=== PATIENT | female | born 1975 | race Caucasian/White ===

== ENCOUNTER 2024-12-28 17:47 | Inpatient (IN) | payer BC, SELFPAY ==
[2024-12-28 17:48] VITALS: BMI 25.1
[2024-12-28 18:16] VITALS: BP 119/77; PULSE 103; RESP 19; TEMP 36.9; O2SAT 99
--- NOTE | 2024-12-28 18:44 | XR_ITS ---
Examination: CT abdomen with intravenous contrast CT pelvis with intravenous contrast 2-D coronal reconstructions 2-D sagittal reconstructions Date and time of exam: December 28, 20242009 hours INDICATIONS: Right perirectal swelling and tenderness beginning 2 days ago. CTDI: vol (mGy) 22.66 DLP: (mGycm) 928 Technique: Multiple axial sections of the abdomen and pelvis have been obtained. 64 slice high-resolution scanner used. 3 mm axial sections have been obtained, post intravenous injection of 60 cc [id number] 2-D sagittal, coronal reconstructions obtained. Low dose protocols were performed. One or more of the following dose reduction were used; automated exposure control, adjustment of the mA and/or KV according to patient size, use of iterative reconstruction technique. Findings: No focal liver or splenic lesions No gallstones No pancreatic or adrenal mass No renal or ureteral calculi, no hydronephrosis Aorta normal size No bowel obstruction Normal appendix No pelvic mass Rectal wall mild thickening Right perianal abscess, 41 x 32 x 55 mm IMPRESSION: 41 x 32 x 55 mm right perianal abscess
--- NOTE | 2024-12-28 18:48 | EDNOTE_ITS ---
ED Skin Abcess FB-RME/HPI General Chief complaint: Skin/Abscess/Foreign Body Stated complaint: RIGHT BUTTOCK ABSCESS X3DAYS Time Seen by Provider: 12/28/24 18:23 Arrival date/time: 12/28/24 17:47 RME / HPI RME / HPI narrative: 49-year-old female patient with no past medical history, came in for evaluation regarding right perirectal swelling and redness and tenderness, has been ongoing for the last 3 days, getting worse today severity moderate. Patient was seen by PCP, Dr Barclay and was given penicillin IM. Patient denies any fever denies any other complaints but complain of pain worse on ambulation. Denies any abdominal pain denies any chills denies any other complaints. Related Data Allergies Allergy/AdvReac Type Severity Reaction Status Date / Time No Known Allergies Allergy Verified 12/28/24 17:50 Review of Systems Review of Systems Narrative Review of Systems: Review of system reviewed and within normal limits except mentioned in HPI ED Exam Narrative Physical exam: VITAL SIGNS: Reviewed. GENERAL APPEARANCE: Alert and interactive, follows commands, no acute distress, HEAD AND FACE: Non-traumatic. ENT: PERRL, pink conjunctivitis, eyelid no trauma, Mucous membrane moist. NECK: Supple, nontender, no nuchal rigidity. CHEST: No tenderness, no crepitus, no paradoxical movement, no retractions. LUNGS: Clear, well ventilated, symmetric, no rales, no wheezing, no ronchi, no stridor, good breath sounds bilaterally. HEART: Regular rate, regular rhythm, no murmur, no gallops. ABDOMEN: Soft, positive bowel sounds, nondistended, no guarding, nontender, no rebound, no masses, RECTAL: 5 x 5 cm swelling redness, tenderness, right perirectal area with GENITAL: Deferred. NEUROLOGICAL: Gross motor function intact sensory function intact, Appropriate for age. MUSCULOSKELETAL: low back nontender, full range of motion. EXTREMITIES: Nontender, full range of motion. SKIN: Color pink, dry, no rash, no lacerations, no abrasions, no contusions. LYMPHATICS: Deferred. Course Quality Measures none Orders Category Date Time Status COVID-19 Screening Questionnaire NOW Care 12/28/24 20:[address] Screening NOW Care 12/28/24 18:45 Completed Decision to Admit X1 Care 12/28/24 20:31 Completed Consult to General Surgery Stat Cons 12/28/24 20:[address] abdomen pelvis w con Stat Exams 12/28/24 18:44 Completed Blood Culture (Lab) Stat Lab 12/28/24 19:01 Received CBC [CBC] Stat Lab 12/28/24 19:01 Completed CMP [Comprehensive Metabolic Panel] Stat Lab 12/28/24 19:01 Completed Lactate (Lactic Acid) Stat Lab 12/28/24 19:01 Completed Procalcitonin Stat Lab 12/28/24 19:01 Completed UA, C/S IF [Urinalysis, C/S if Indicated] Stat Lab 12/28/24 18:46 Ordered Morphine* Inj Med 12/28/24 18:46 Discontinued 4 mg IVP X1 ONE Ondansetron Odt [Zofran Odt] Med 12/28/24 18:47 Discontinued 4 mg PO X1 ONE Piper/Tazo 3.375 gm Premix [Zosyn] Med 12/28/24 18:45 Discontinued 3.375 gm in 50 ml IV X1 Ringers Lactated 1000 ml [Lactated Ringers] 1,000 ml Med 12/28/24 18:45 Discon tinued IV 999 mls/hr TET,DIP/PERT AC (Adult)-Tdap [Boostrix Adult (Tdap) Med 12/28/24 18:47 Discontinued Vacc] 0.5 ml IMI .ONCE ONE Vital Signs Vital signs: Vital Signs Temperature 98.4 F 12/28/24 18:16 Pulse Rate 103 H 12/28/24 18:16 Respiratory Rate 19 12/28/24 18:16 Blood Pressure 119/77 12/28/24 18:16 Pulse Oximetry (%) 99 12/28/24 18:16 Oxygen Delivery Method Room Air 12/28/24 18:16 Skin / Abscess / Foreign Body MDM Narrative MDM Narrative:: 49-year-old female patient with no past medical history, came in for evaluation regarding right perirectal swelling and redness and tenderness, has been ongoing for the last 3 days, getting worse today severity moderate. Patient was seen by PCP, Dr Barclay and was given penicillin IM. Patient denies any fever denies any other complaints but complain of pain worse on ambulation. Denies any abdominal pain denies any chills denies any other complaints. Patient's laboratory workup all came back unremarkable except potassium 3.3. CT scan of the abdomen and pelvis showed No focal liver or splenic lesions No gallstones No pancreatic or adrenal mass No renal or ureteral calculi, no hydronephrosis Aorta normal size No bowel obstruction Normal appendix No pelvic mass Rectal wall mild thickening Right perianal abscess, 41 x 32 x 55 mm IMPRESSION: 41 x 32 x 55 mm right perianal abscess Patient received IV fluids, IV Zosyn, morphine, Toradol, and Boostrix. Spoke with Dr. Barclay, who admitted the patient, and told me to put consult for Dr Fortune because she already talked to Dr. Fortune, and Dr. Wiseman will do surgery tomorrow. I did not call Dr. Fortune because Dr. Renee already discussed the case with him. Patient data External records reviewed:: None Clinical information provided by:: patient Social determinants that could affect healthcare access:: none Patient has the following chronic illnesses:: None How is presenting disease/condition affected by chronic disease/condition?: no chronic disease Evaluation data The following diagnostics were reviewed and interpreted by me:: lab results and radiology exam(s) Lab and/or radiology exams considered but not ordered:: None Interpretation Summary: See results MDM Medications / Prescriptions Medications or Prescriptions considered but not ordered:: None Medication administrations:: Medication Administration History Acetaminophen (Acetaminophen 325 Mg Tablet) 650 mg PO Q6HR PRN PRN Reason: PAIN OR FEVER > 101 Stop: 01/27/25 20:51 Last Admin: 12/28/24 21:13 Dose: 650 mg Documented By: DT Piperacillin/Tazobactam/Dextrose (Zosyn) 3.375 g in 50 mls @ 100 mls/hr IV Q6HR MARIVEL; Protocol Stop: 01/04/25 20:54 Last Admin: 12/28/24 21:15 Dose: Not Given Documented By: GB Non-Admin Reason: Wrong Time Discontinued Medications Diphtheria/Tetanus/Acell Pertussis (Diphth,Pertuss(Acell),Tet Vac 0.5 Ml Syr- Adult) 0.5 ml IMi .ONCE ONE Stop: 12/28/24 18:48 Last Admin: 12/28/24 21:17 Dose: 0.5 ml Documented By: DT Lactated Ringer's (Lactated Ringers) 1,000 mls @ 999 mls/hr IV .Q1H1M ONE Stop: 12/28/24 19:45 Last Infusion: 12/28/24 22:41 Dose: Infused Documented By: Admin: 12/28/24 21:13 Dose: 999 mls/hr Documented By: DT Piperacillin/Tazobactam/Dextrose (Zosyn) 3.375 gm in 50 mls @ 100 mls/hr IV X1 ONE; Protocol Stop: 12/28/24 19:14 Last Infusion: 12/28/24 21:40 Dose: Infused Documented By: Admin: 12/28/24 21:10 Dose: 100 mls/hr Documented By: DT Ketorolac Tromethamine (Ketorolac Inj 30 Mg/Ml Vial) 30 mg IVP X1 ONE Stop: 12/28/24 21:43 Last Admin: 12/28/24 21:57 Dose: 30 mg Documented By: DT Morphine Sulfate (Morphine Sulf Inj 4 Mg/Ml Vial) 4 mg IVP X1 ONE Stop: 12/28/24 18:47 Last Admin: 12/28/24 21:14 Dose: Not Given Documented By: DT Non-Admin Reason: Patient Refused Ondansetron HCl (Ondansetron Odt 4 Mg Tabrap) 4 mg PO X1 ONE; Protocol Stop: 12/28/24 18:48 Last Admin: 12/28/24 21:09 Dose: 4 mg Documented By: DT See MDM Consultations Consultation(s) initiated? (list below): Yes Consultation #1 (Physician, Specialty, Details): Dr Fortune consult was done in the computer. I did not talk to Dr Fortune since Dr Barclay already talk with him Diagnosis Skin/Abscess Differential Diagnosis: abscess of skin or subcutaneous tissue and cellulitis Most likely diagnosis given after review of the tests above:: Perianal abscess Admission Indicated Admission indicated?: indicated Admission Request Was there a request for admission?: Yes Admission Attestation Admission request attestation: Patient admitted by her PCP Disposition Plan Disposition Plan: Admit Discharge Plan Plan Patient Disposition: Admit Acute Care w/in Hospital Problem List Clinical Impression: Abscess, perianal
[2024-12-28 19:10] LABS: Lactate (Lactic Acid) 1.0 mMol/L (0.4-2.0)
[2024-12-28 19:11] LABS: Basophils # (Auto) 0.0 Thou/mm3 (0.0-0.2); Basophils % (Auto) 0 % (0-2.5); Eosinophils # (Auto) 0.0 Thou/mm3 (0.0-0.5); Eosinophils % (Auto) 0 % (0-10); Hematocrit 31.9 % (36.0-46.0); Hemoglobin 10.5 g/dL (12.0-16.0); Immature Granulocytes Auto 0.03 Thou/mm3 (0.00-0.00); Lymphocytes # (Auto) 0.7 Thou/mm3 (1.0-4.8); Lymphocytes % (Auto) 7 % (10-50); Mean Corpuscular HGB Conc 32.9 g/dl (31.0-37.0); Mean Corpuscular Hemoglobin 26.9 pg (25.0-35.0); Mean Corpuscular Volume 82 fL (80-100); Monocytes # (Auto) 1.0 Thou/mm3 (0.0-0.8); Monocytes % (Auto) 9 % (0-12); Neutrophils # (Auto) 9.3 Thou/mm3 (1.8-7.7); Neutrophils % (Auto) 84 % (37-80); Nucleated Red Blood Cell # 0.00 Thou/mm3 (0.00-0.00); Nucleated Red Blood Cell % 0 /100 WBC (0); Platelet Count 256 Thou/mm3 (140-440); RDW Standard Deviation 38.9 fL (36.4-46.3); Red Blood Count 3.91 Miln/mm3 (4.00-5.20); White Blood Count 11.0 Thou/mm3 (3.6-11.0)
[2024-12-28 19:54] LABS: Alanine Aminotransferase < 7 U/L (10-49); Albumin, Serum 4.1 gm/dL (3.5-5.0); Albumin/Globulin Ratio 1.5 (1.2-2.2); Alkaline Phosphatase 73 U/L (46-116); Anion Gap 14 (7-16); Aspartate Amino Transferase 11 U/L (0-34); BUN/Creatinine Ratio 13 Ratio (12-20); Bilirubin,Total 0.6 mg/dL (0.3-1.2); Blood Urea Nitrogen 10 mg/dL (9-23); Calcium 8.9 mg/dL (8.3-10.6); Calcium (Corrected) 8.9 mg/dL (8.5-10.1); Carbon Dioxide 24.0 mMol/L (20.0-31.0); Chloride 102 mMol/L (98-107); Creatinine (Component) 0.8 mg/dL (0.6-1.3); Estimated Creatinine Clearance 90.0 mL/min (>60); Globulin 2.8 gm/dL (2.3-3.5); Glucose 106 mg/dL (74-106); Osmolality,Calculated 278 (275-295); Potassium 3.3 mMol/L (3.4-5.1); Procalcitonin 0.05 ng/ml (0.0-0.49); Sodium 140 mMol/L (136-145); Total Protein 6.9 gm/dL (5.7-8.2); eGFR > 60 See Note
[2024-12-28] MEDS: ONDANSETRON ODT 4 MG TABRAP PO (21:09)
[2024-12-28] MEDS: PIPER/TAZO 3.375 GM PREMIX 3.375 GM/50 ML BAG IV (21:10)
[2024-12-28] MEDS: RINGERS LACTATED 1000 ML 1,000 ML 999 ML IV (21:13)
[2024-12-28] MEDS: ACETAMINOPHEN 325 MG TABLET 650 MG PO (21:13)
[2024-12-28] MEDS: DIPHTH,PERTUSS(ACELL),TET VAC 0.5 ML SYR- ADULT IMi (21:17)
[2024-12-28 21:29] VITALS: BP 104/72; PULSE 81; RESP 17; O2SAT 100
[2024-12-28] MEDS: KETOROLAC INJ 30 MG/ML VIAL IVP (21:57)
--- NOTE | 2024-12-28 22:58 | PC.NURSE ---
Pt arrivede to room 371 via rney transferred self to bed, oriented to room and call light placed within reach.
[2024-12-28 23:01] VITALS: BMI 26.3
[2024-12-29] VITALS (14 sets, daily range): BP systolic 97–115; BP diastolic 60–78; PULSE 68–84; RESP 12–97; TEMP 36.3–37.3; O2SAT 92–99
--- NOTE | 2024-12-29 00:05 | PC.NURSE ---
Contacted Dr. Barclay regarding pain medication, orders obtained, will inform pt.
[2024-12-29] MEDS: KETOROLAC INJ 30 MG/ML VIAL IVP ×2 (02:17→09:12)
[2024-12-29 04:54] LABS: Collection Type, Urine Clean Catch
[2024-12-29 04:59] LABS: Bilirubin,Urine Negative (Negative); Blood,Urine 3+ (Negative); Clarity,Urine Clear (Clear/Hazy); Color,Urine Yellow (Lt Yel-Yel); Glucose, Urine Negative (Negative); Ketones,Urine 3+ (Negative); Leukocyte Esterase,Urine Positive (Negative); Nitrite,Urine Negative (Negative); PH,Urine 6.0 (5.0-7.0); Protein,Urine 1+ (Neg - Trace); RBC,Urine 14 /hpf (0-3); Squamous Epithelial Cell,Urine 6 /hpf (0-5); Urobilinogen,Urine Negative mg/dL (0.0-1.0); WBC,Urine 21 /hpf (0-5)
[2024-12-29 05:00] LABS: Culture Indicated,Urine Yes
[2024-12-29 05:01] LABS: Specific Gravity,Urine 1.010 (1.001-1.035)
[2024-12-29] MEDS: PIPER/TAZO 3.375 GM PREMIX 3.375 G/50 ML BAG IV ×3 (06:23→21:07)
[2024-12-29] MEDS: POTASSIUM CHL 10 mEq IVPB 10 MEQ/100 ML BAG 100 MEQ IV (06:23)
[2024-12-29 10:32] LABS: Anion Gap 12 (7-16); BUN/Creatinine Ratio 13 Ratio (12-20); Blood Urea Nitrogen 9 mg/dL (9-23); Calcium 8.5 mg/dL (8.3-10.6); Carbon Dioxide 24.0 mMol/L (20.0-31.0); Chloride 104 mMol/L (98-107); Creatinine (Component) 0.7 mg/dL (0.6-1.3); Estimated Creatinine Clearance 111.6 mL/min (>60); Glucose 91 mg/dL (74-106); Osmolality,Calculated 278 (275-295); Potassium 3.5 mMol/L (3.4-5.1); Sodium 140 mMol/L (136-145); eGFR > 60 See Note
--- NOTE | 2024-12-29 10:37 | PC.SS ---
Patient is alert/oriented. Patient resides at home with spouse. Admitted for right perirectal abscess. Patient is independent with ADL's. No DME. Patient is employed. Patient is pending surgery. PCP: . Pharmacy: [facility]. Discharge plan is to return home. No d/c needs. Alt medical decision maker: Logan Melgar, ,
[2024-12-29 10:52] LABS: HCG,Qualitative Serum Negative
[2024-12-29] MEDS: fentaNYL CIT INJ 50 mCg/ML AMP 2ML IVP (13:10)
--- NOTE | 2024-12-29 13:25 | SUR.PHASEI ---
1239: pt arrived to PACU via gurney with LMA present, breathing unlabored, VS stable, anesthesia and RN quality control tester at bedside 1245: LMA removed by Dr Corral, dressing to right buttock clean, dry, and intact, report from Js MCLEOD and Dr Corral 1300: pt tolerating ice chips without difficulty swallowing or n/v 1325: pt awake, alert, able to follow commands, breathing unlabored, dressing to right buttock clean, dry, and intact, VS stable, report called to Jossie MCLEOD, pt transferred to room at this time.
--- NOTE | 2024-12-29 13:47 | PD.SURCONS ---
HPI Consult details Consult date: 12/28/24 Reason for consultation narrative: Perirectal pain History of present illness: 49-year-old female without significant past medical history presented to the emergency department with worsening perirectal pain. Her symptoms started about a week ago and has been getting progressively worse. Over the past 2 days she has had significant pain with increased swelling. She denies history of trauma. Patient has not had history of blood per rectum, changes in bowel habits or significant weight loss. She has not had colonoscopy in the past. Review of Systems Constitutional Constitutional: Denies chills and Denies fever(s) Cardiovascular Cardiovascular: Denies chest pain Respiratory Respiratory: Denies cough Gastrointestinal Gastrointestinal: Denies abdominal pain, Denies hematochezia, Denies nausea and Denies vomiting Genitourinary Genitourinary: Denies difficulty voiding Hematologic/Lymphatic Hematologic/Lymphatic: Denies easy bleeding and Denies easy bruising Past Medical History Surgical History OTHER SURGICAL HX: No surgeries in the past Social History SMOKING STATUS: Never smoker SUBSTANCE USE: does not use ALCOHOL: Never Meds Home Medications and Allergies Home Medications ?Medication ?Instructions ?Recorded ?Confirmed ?Type No Known Home Medications 12/28/24 12/28/24 History Allergies Allergy/AdvReac Type Severity Reaction Status Date / Time No Known Allergies Allergy Verified 12/28/24 17:50 Exam Vital Signs Temp Pulse Resp BP Pulse Ox O2 Del Method 97.7 F 81 17 115/78 97 Room Air 12/29/24 13:24 12/29/24 13:24 12/29/24 13:24 12/29/24 13:24 12/29/24 13:24 12/29/24 08:00 Constitutional Constitutional: no acute distress Routine Abdominal Exam Abdominal: Present soft and normoactive bowel sounds; Absent tenderness or distended Routine Rectal Exam Comments: Significant tenderness and cellulitis on the right perirectal area with fluctuance Results Results: Laboratory Laboratory results: results reviewed Results: Imaging CT scan - abdomen: report reviewed and image reviewed CT scan - pelvis: report reviewed and image reviewed Assessment & Plan Problem List (1) Abscess, perianal: Status: Acute Plan Keep n.p.o. with IV fluids and IV antibiotics. Will plan for incision and drainage of perianal abscess. Risks include but not limited to infection, bleeding, chronic nonhealing wound, possible formation of anal fistula in the future, possible need for future operation discussed with the patient. Benefits alternatives explained to her, all her questions answered, she agreed and consented to proceed with the operation.
--- NOTE | 2024-12-29 13:51 | ESOP_ITS ---
Date of Procedure 01/24/25 Pre Op Diagnosis Right perianal abscess Post Op Diagnosis Right perianal abscess Procedure Incision and drainage of right perianal abscess Findings Significant cellulitis, fluctuance and large right perianal abscess Procedure Description Patient brought into the operating room in supine position. After administra tion of general endotracheal anesthesia, patient was placed in high lithotomy position. Her perineum was prepped and draped in standard surgical manner. She was noted to have a significant cellulitis with large area of fluctuance on the right perianal region approximately 2 to 3 cm from anal verge. After administration of local anesthesia an approximately 1 cm cross-shaped incision was made over the area of most fluctuance, copious amount of purulent drainage encountered, cultures were obtained. The abscess cavity was evacuated. The cavity was copiously and thoroughly washed and irrigated with Betadine mixed with peroxide and saline. It was further washed with warm saline. The cavity was then packed with wet-to-dry dressings. Patient tolerated procedure well. She was placed in supine position and extubated. She was breathing spontaneously and without difficulty and was transferred to postanesthesia care in stable condition. Instruments, needles and sponge counts were reported to be correct x 2. Anesthesia GETA and local Pathology / specimen Other (Cultures from the abscess cavity) Estimated Blood Loss 10 Condition Stable Disposition PACU Surgeon Ines Fortune MD Surgical Staff Operation Date: 12/29/24 11:45 <No data on this case meets the specified criteria>
[2024-12-29] MEDS: CLINDAMYCIN 900MG IVPB 900 MG in PRE-MIXED 1 BAG 50 MG IV ×2 (14:19→21:07)
[2024-12-29] MEDS: ZINC SULFATE 220 MG CAPSULE PO (14:19)
--- NOTE | 2024-12-29 15:44 | ESHP_ITS ---
Documentation for date of: 12/29/24 [facility] History of Present Illness Chief complaint: Right buttock pain and swelling for 3 days History of present illness: 49-year-old female with no significant past medical history presented with worsening right perirectal pain, redness, and swelling over the past 3 days. Pain is moderate, constant, and aggravated by ambulation or sitting. She denies fevers, chills, nausea, vomiting, abdominal pain, or changes in bowel habits. She was evaluated by her PCP, Dr. Barclay, and received IM penicillin without improvement. CT abdomen/pelvis showed a right perianal abscess measuring 41 x 32 x 55 mm with mild rectal wall thickening, no intra-abdominal pathology. She received IV fluids, IV Zosyn, morphine, and Toradol in the ED. General Surgery was consulted (Dr. Fortune) and proceeded with incision and drainage of the right perianal abscess on 12/29/24 under general anesthesia. Post-op, the patient is alert, stable, and reports mild discomfort at the incision site. Packing remains in place. ROS: Negative unless stated above Past Medical History * No known chronic medical conditions Past Surgical History * None Medications (Prior to Admission) * None Allergies * No known drug allergies Family History * Noncontributory Social History * Never smoker * Denies alcohol or illicit drug use * Lives independently Exam Vital Signs Temp Pulse Resp BP Pulse Ox O2 Del Method 97.4 F 71 18 97/67 94 L Room Air 12/29/24 14:45 12/29/24 14:45 12/29/24 14:45 12/29/24 14:45 12/29/24 14:45 12/29/24 14:45 Narrative Exam General: Alert, oriented x3, in mild discomfort but not in acute distress Neck: Supple, no lymphadenopathy Cardiac: Regular rate and rhythm, no murmurs Lungs: Clear to auscultation bilaterally Abdomen: Soft, non-distended, non-tender, positive bowel sounds Rectal: Right perianal area with incision and packing in place, mild surrounding erythema and tenderness, no active drainage Extremities: No edema, good pulses Neuro: Grossly intact Skin: Warm, dry, with localized erythema at incision site Results: Labs 12/31/24 04:58 12/31/24 04:58 Labs: Short CBC 12/28/24 Range/Units 19:01 WBC 11.0 (3.6-11.0) Thou/mm3 Hgb 10.5 L (12.0-16.0) g/dL Hct 31.9 L (36.0-46.0) % Plt Count 256 (140-440) Thou/mm3 BMP 12/28/24 12/29/24 19:01 10:05 Sodium 140 140 Potassium 3.3 L 3.5 Chloride 102 104 Carbon Dioxide 24.0 24.0 BUN 10 9 Creatinine 0.8 0.7 Glucose 106 91 Calcium 8.9 8.5 Liver Function 12/28/24 Range/Units 19:01 Total Bilirubin 0.6 (0.3-1.2) mg/dL AST 11 (0-34) U/L ALT < 7 L (10-49) U/L Alkaline Phosphatase 73 (46-116) U/L Albumin 4.1 (3.5-5.0) gm/dL Urine 12/28/24 Range/Units 23:47 Urine Color Yellow (Lt Yel-Yel) Urine Clarity Clear (Clear/Hazy) Urine pH 6.0 (5.0-7.0) Ur Specific [place] 1.010 (1.001-1.035) Urine Protein 1+ A (Neg - Trace) Urine Glucose (UA) Negative (Negative) Quality Measures Quality Measures VTE prophylaxis Medications Home Medications and Allergies Home Medications ?Medication ?Instructions ?Recorded ?Confirmed ?Type No Known Home Medications 12/28/2412/14 History Allergies Allergy/AdvReac Type Severity Reaction Status Date / Time No Known Allergies Allergy Verified 12/28/24 17:50 Visit Medications Acetaminophen (Acetaminophen 325 Mg Tablet) 650 mg PO Q6HR PRN; Protocol PRN Reason: PAIN OR FEVER > 101 Stop: 01/27/25 20:51 Last Admin: 12/28/24 21:13 Dose: 650 mg Hydrocodone Bitart/Acetaminophen (Hydrocodone/Apap 5/325 Tablet) 1 tab PO Q6HR PRN PRN Reason: PAIN 4-6 Stop: 01/03/25 14:08 Ascorbic Acid (Ascorbic Acid 250 Mg Tablet) 500 mg PO BID MARIVEL Stop: 01/28/25 20:59 Docusate Sodium (Docusate Sod 100 Mg Capsule) 100 mg PO BID MARIVEL; Protocol Stop: 01/28/25 20:59 Piperacillin/Tazobactam/Dextrose (Zosyn) 3.375 g in 50 mls @ 12.5 mls/hr IV Q8HR MARIVEL; Protocol Stop: 01/05/25 05:59 Last Admin: 12/29/24 14:19 Dose: 12.5 mls/hr Clindamycin Phosphate 900 mg/ (IV Miscellaneous Supplies) 50 mls @ 50 mls/hr IV Q8HR MARIVEL Stop: 01/05/25 14:08 Last Admin: 12/29/24 14:19 Dose: 50 mls/hr Morphine Sulfate (Morphine Sulf Inj 4 Mg/Ml Vial) 3 mg IVP Q2H PRN PRN Reason: PAIN SCALE 7-10 (Severe Stop: 01/01/25 14:08 Ondansetron HCl (Ondansetron Inj 2 Mg/Ml Inj 2 Ml) 4 mg IVP Q6HR PRN; Protocol PRN Reason: NAUSEA OR VOMITING Stop: 01/28/25 14:08 Zinc Sulfate (Zinc Sulfate 220 Mg Capsule) 220 mg PO QDAY MARIVEL Stop: 01/28/25 14:08 Last Admin: 12/29/24 14:19 Dose: 220 mg Discontinued Medications Diphtheria/Tetanus/Acell Pertussis (Diphth,Pertuss(Acell),Tet Vac 0.5 Ml Syr- Adult) 0.5 ml IMi .ONCE ONE Stop: 12/28/24 18:48 Last Admin: 12/28/24 21:17 Dose: 0.5 ml Fentanyl Citrate (Fentanyl Cit Inj 50 Mcg/Ml Amp 2ml) 50 mcg IVP Q5M PRN PRN Reason: PAIN SCALE 4-10(Mod-Sev Stop: 12/29/24 14:33 Last Admin: 12/29/24 13:10 Dose: 50 mcg Hydralazine HCl (Hydralazine Inj 20 Mg/Ml Vial) 5 mg IVP Q20M PRN PRN Reason: SEE COMMENTS Stop: 12/29/24 14:33 Lactated Ringer's (Lactated Ringers) 1,000 mls @ 999 mls/hr IV .Q1H1M ONE Stop: 12/28/24 19:45 Last Infusion: 12/28/24 22:41 Dose: Infused Piperacillin/Tazobactam/Dextrose (Zosyn) 3.375 gm in 50 mls @ 100 mls/hr IV X1 ONE; Protocol Stop: 12/28/24 19:14 Last Infusion: 12/28/24 21:40 Dose: Infused Piperacillin/Tazobactam/Dextrose (Zosyn) 3.375 g in 50 mls @ 100 mls/hr IV Q6HR MARIVEL; Protocol Stop: 01/04/25 20:54 Last Admin: 12/29/24 01:14 Dose: Not Given Potassium Chloride (Kcl Ivpb) 10 meq in 100 mls @ 100 mls/hr IV Q1H MARIVEL Stop: 12/29/24 07:48 Last Admin: 12/29/24 08:53 Dose: Not Given Promethazine HCl 12.5 mg/ (Sodium Chloride) 50.5 mls @ 2.5 mls/min IV X1 PRN PRN Reason: NAUSEA OR VOMITING Ketorolac Tromethamine (Ketorolac Inj 30 Mg/Ml Vial) 30 mg IVP X1 ONE Stop: 12/28/24 21:43 Last Admin: 12/28/24 21:57 Dose: 30 mg Ketorolac Tromethamine (Ketorolac Inj 30 Mg/Ml Vial) 30 mg IVP Q6HR PRN PRN Reason: BREAKTHROUGH PAIN Stop: 12/31/24 00:03 Last Admin: 12/29/24 09:12 Dose: 30 mg Meperidine HCl (Meperidine Inj 50 Mg/Ml Vial) 12.5 mg IVP Q5M PRN PRN Reason: SHIVERING Stop: 12/29/24 14:33 Midazolam HCl (Midazolam Inj 1 Mg/Ml Vial 2 Ml) 1 mg IVP Q5M PRN PRN Reason: ANXIETY Stop: 12/29/24 14:33 Morphine Sulfate (Morphine Sulf Inj 4 Mg/Ml Vial) 4 mg IVP X1 ONE Stop: 12/28/24 18:47 Last Admin: 12/28/24 21:14 Dose: Not Given Morphine Sulfate (Morphine Sulf Inj 4 Mg/Ml Vial) 2 mg IVP Q10M PRN PRN Reason: PAIN SCALE 4-10(Mod-Sev Stop: 12/29/24 14:33 Ondansetron HCl (Ondansetron Odt 4 Mg Tabrap) 4 mg PO X1 ONE; Protocol Stop: 12/28/24 18:48 Last Admin: 12/28/24 21:09 Dose: 4 mg Ondansetron HCl (Ondansetron Inj 2 Mg/Ml Inj 2 Ml) 4 mg IVP X1 PRN PRN Reason: NAUSEA OR VOMITING Potassium Chloride (Potassium Chloride 20 Meq Tabcr) 40 meq PO X1 ONE Stop: 12/29/24 08:55 Last Admin: 12/29/24 09:13 Dose: 40 meq Assessment & Plan Plan 49-year-old female with no PMH admitted with right perianal abscess, now s/p I&D by surgery on 12/29/24, stable post-procedure. # Perianal Abscess (s/p I&D 12/29/24) Active infection with cellulitis, now post-drainage. Plan: * Continue IV Zosyn 3.375 g q8h * Continue IV Clindamycin 900 mg q8h for anaerobic coverage * Await wound culture results for targeted therapy * Daily wound assessment * NPO until cleared by surgery -> advance diet as tolerated * Monitor CBC, temp, wound drainage # Hypokalemia Mild; likely from poor PO intake and IVF. Plan: * Replete to maintain K > 4.0 * BMP daily #Proteinuria and Hematuria Likely transient post-infection. Plan: * Monitor renal function * Repeat UA after infection resolves Health maintenance: DVT Prophylaxis: SCDs; hold anticoagulation until cleared by surgery GI Prophylaxis: Protonix IV daily Diet: NPO; advance per surgery Code Status: Full ----- Plan discussed with attending physician Dr. Deny Woodard MD PGY-1 Internal Medicine Attending Provider Attestation/Addendum Patient seen and examined with resident physician Dr. Woodard. Note reviewed, agree with findings and recommendations. Patient with right perirectal abscess. On IV antibiotics. Pending I&D with Dr Fortune.
[2024-12-29] MEDS: MORPHINE SULF INJ 4 MG/ML VIAL 3 MG IVP (16:11)
[2024-12-29] MEDS: ASCORBIC ACID 250 MG TABLET 500 MG PO (21:08)
[2024-12-30] VITALS (8 sets, daily range): BP systolic 96–107; BP diastolic 66–69; PULSE 61–75; RESP 16–97; TEMP 36.2–36.6; O2SAT 95–97; BMI 26.2
[2024-12-30] MEDS: PIPER/TAZO 3.375 GM PREMIX 3.375 G/50 ML BAG IV ×3 (05:17→21:11)
[2024-12-30] MEDS: CLINDAMYCIN 900MG IVPB 900 MG in PRE-MIXED 1 BAG 50 MG IV ×3 (05:18→21:11)
[2024-12-30] MEDS: MORPHINE SULF INJ 4 MG/ML VIAL 3 MG IVP ×2 (05:25→14:09)
[2024-12-30 05:38] LABS: Basophils # (Auto) 0.0 Thou/mm3 (0.0-0.2); Basophils % (Auto) 0 % (0-2.5); Eosinophils # (Auto) 0.0 Thou/mm3 (0.0-0.5); Eosinophils % (Auto) 0 % (0-10); Hematocrit 30.0 % (36.0-46.0); Hemoglobin 9.8 g/dL (12.0-16.0); Immature Granulocytes Auto 0.06 Thou/mm3 (0.00-0.00); Lymphocytes # (Auto) 0.5 Thou/mm3 (1.0-4.8); Lymphocytes % (Auto) 5 % (10-50); Mean Corpuscular HGB Conc 32.7 g/dl (31.0-37.0); Mean Corpuscular Hemoglobin 26.6 pg (25.0-35.0); Mean Corpuscular Volume 81 fL (80-100); Monocytes # (Auto) 0.5 Thou/mm3 (0.0-0.8); Monocytes % (Auto) 5 % (0-12); Neutrophils # (Auto) 9.6 Thou/mm3 (1.8-7.7); Neutrophils % (Auto) 90 % (37-80); Nucleated Red Blood Cell # 0.00 Thou/mm3 (0.00-0.00); Nucleated Red Blood Cell % 0 /100 WBC (0); Platelet Count 302 Thou/mm3 (140-440); RDW Standard Deviation 38.8 fL (36.4-46.3); Red Blood Count 3.69 Miln/mm3 (4.00-5.20); White Blood Count 10.7 Thou/mm3 (3.6-11.0)
[2024-12-30 06:00] LABS: Albumin, Serum 3.8 gm/dL (3.5-5.0); Anion Gap 12 (7-16); BUN/Creatinine Ratio 16 Ratio (12-20); Blood Urea Nitrogen 13 mg/dL (9-23); Calcium 8.7 mg/dL (8.3-10.6); Calcium (Corrected) 8.9 mg/dL (8.5-10.1); Carbon Dioxide 23.3 mMol/L (20.0-31.0); Chloride 103 mMol/L (98-107); Creatinine (Component) 0.8 mg/dL (0.6-1.3); Estimated Creatinine Clearance 97.7 mL/min (>60); Glucose 122 mg/dL (74-106); Osmolality,Calculated 276 (275-295); Phosphorous 3.4 mg/dL (2.4-5.1); Potassium 3.7 mMol/L (3.4-5.1); Sodium 138 mMol/L (136-145); eGFR > 60 See Note
[2024-12-30] MEDS: ZINC SULFATE 220 MG CAPSULE PO (08:17)
[2024-12-30] MEDS: DOCUSATE SOD 100 MG CAPSULE PO (08:17)
[2024-12-30] MEDS: ASCORBIC ACID 250 MG TABLET 500 MG PO ×2 (08:17→21:10)
[2024-12-30] MEDS: PANTOPRAZOLE 40 MG TABLET PO (08:17)
--- NOTE | 2024-12-30 11:06 | PC.SS ---
SS follow up note; Pending Wound Cultures. Patient is on IV ABX. Patinert will discharge home when medically cleared.
[2024-12-30] MEDS: ACETAMINOPHEN 325 MG TABLET 650 MG PO (11:42)
--- NOTE | 2024-12-30 12:26 | ESPR_ITS ---
Documentation for date of: 12/30/24 Subjective Subjective Interval history: Chief complaint: Right buttock pain and swelling for 3 days History of present illness: 49-year-old female with no significant past medical history presented with worsening right perirectal pain, redness, and swelling over the past 3 days. Pain is moderate, constant, and aggravated by ambulation or sitting. She denies fevers, chills, nausea, vomiting, abdominal pain, or changes in bowel habits. She was evaluated by her PCP, Dr. Barclay, and received IM penicillin without improvement. CT abdomen/pelvis showed a right perianal abscess measuring 41 x 32 x 55 mm with mild rectal wall thickening, no intra-abdominal pathology. She received IV fluids, IV Zosyn, morphine, and Toradol in the ED. General Surgery was consulted (Dr. Fortune) and proceeded with incision and drainage of the right perianal abscess on 12/29/24 under general anesthesia. Post-op, the patient is alert, stable, and reports mild discomfort at the incision site. Packing remains in place. 12/30/2024: Patient seen and examined at bedside. Reports feeling better today with less pain and appears more comfortable. Denies fever, chills, or new complaints. Surgeon will evaluate today to change wound dressing and address her questions. Possible discharge tomorrow pending surgical recommendations. Discussed potential for home health services for wound dressing changes, as patient has no one available to assist at home. Exam Vital Signs Temp Pulse Resp BP Pulse Ox O2 Del Method 97.8 F 63 17 101/67 97 Room Air 12/30/24 08:00 12/30/24 08:00 12/30/24 08:00 12/30/24 08:00 12/30/24 08:00 12/30/24 08:00 Narrative Exam General: Alert, oriented x3, in mild discomfort but not in acute distress Neck: Supple, no lymphadenopathy Cardiac: Regular rate and rhythm, no murmurs Lungs: Clear to auscultation bilaterally Abdomen: Soft, non-distended, non-tender, positive bowel sounds Rectal: Right perianal area with incision and packing in place, mild surrounding erythema and tenderness, no active drainage Extremities: No edema, good pulses Neuro: Grossly intact Skin: Warm, dry, with localized erythema at incision site Objective Labs 12/31/24 04:58 12/31/24 04:58 Labs: Laboratory Results - last 24 hr 12/30/24 05:18 WBC 10.7 RBC 3.69 L Hgb 9.8 L Hct 30.0 L MCV 81 MCH 26.6 MCHC 32.7 RDW Std Deviation 38.8 Plt Count 302 D Neut % (Auto) 90 H Lymph % (Auto) 5 L Burke % (Auto) 5 Eos % (Auto) 0 Baso % (Auto) 0 Neut # (Auto) 9.6 H Lymph # (Auto) 0.5 L Burke # (Auto) 0.5 Eos # (Auto) 0.0 Baso # (Auto) 0.0 Immature Gran # (Auto) 0.06 H Absolute Nucleated RBC 0.00 Immature Gran % 1 H Nucleated RBC % 0 Sodium 138 Potassium 3.7 Chloride 103 Carbon Dioxide 23.3 Anion Gap 12 BUN 13 Creatinine 0.8 Estim Creat Clear Calc 97.7 eGFR > 60 BUN/Creatinine Ratio 16 Glucose 122 H Calculated Osmolality 276 Calcium 8.7 Corrected Calcium 8.9 Phosphorus 3.4 Albumin 3.8 Quality Measures Quality Measures VTE prophylaxis Assessment & Plan Assessment Current Active Medications: Generic Name Dose Route Start Last Admin Trade Name Freq PRN Reason Stop Dose Admin Acetaminophen 650 mg 12/28/24 20:52 12/30/24 11:42 Acetaminophen 325 Mg Tablet PO 01/27/25 20:51 650 mg Q6HR PRN Administration PAIN OR FEVER > 101 Protocol Hydrocodone Bitart/Acetaminophen 1 tab 12/29/24 14:09 Hydrocodone/Apap 5/325 Tablet PO 01/03/25 14:08 Q6HR PRN PAIN 4-6 Ascorbic Acid 500 mg 12/29/24 21:00 12/30/24 08:17 Ascorbic Acid 250 Mg Tablet PO 01/28/25 20:59 500 mg BID MARIVEL Administration Docusate Sodium 100 mg 12/29/24 21:00 12/30/24 08:17 Docusate Sod 100 Mg Capsule PO 01/28/25 20:59 100 mg BID MARIVEL Administration Protocol Piperacillin/Tazobactam/Dextrose 3.375 g in 50 mls @ 12.5 mls/hr 12/29/24 06:00 12/30/24 05:17 Zosyn IV 01/05/25 05:59 12.5 mls/hr Q8HR MARIVEL Administration Protocol Clindamycin Phosphate 900 mg/ 50 mls @ 50 mls/hr 12/29/24 14:09 12/30/24 05:18 IV Miscellaneous Supplies IV 01/05/25 14:08 50 mls/hr Q8HR MARIVEL Administration Morphine Sulfate 3 mg 12/29/24 14:09 12/30/24 05:25 Morphine Sulf Inj 4 Mg/Ml Vial IVP 01/01/25 14:08 3 mg Q2H PRN Administration PAIN SCALE 7-10 (Severe Ondansetron HCl 4 mg 12/29/24 14:09 Ondansetron Inj 2 Mg/Ml Inj 2 Ml IVP 01/28/25 14:08 Q6HR PRN NAUSEA OR VOMITING Protocol Pantoprazole Sodium 40 mg 12/30/24 09:00 12/30/24 08:17 Pantoprazole 40 Mg Tablet PO 01/29/25 08:59 40 mg QDAY MARIVEL Administration Zinc Sulfate 220 mg 12/29/24 14:09 12/30/24 08:17 Zinc Sulfate 220 Mg Capsule PO 01/28/25 14:08 220 mg QDAY MARIVEL Administration Plan 49-year-old female with no PMH admitted with right perianal abscess, now s/p I&D by surgery on 12/29/24, stable post-procedure. # Perianal Abscess (s/p I&D 12/29/24) Active infection with cellulitis, now post-drainage. Plan: * Continue IV Zosyn 3.375 g q8h * Continue IV Clindamycin 900 mg q8h for anaerobic coverage * Await wound culture results for targeted therapy * Daily wound assessment * Plan for possible discharge tomorrow after surgical clearance * If discharged, arrange home health for wound dressing changes * Monitor CBC, temp, wound drainage # Hypokalemia (resolved) Potassium 3.7; likely from poor PO intake and IVF. Plan: * Replete to maintain K > 4.0 * BMP daily #Proteinuria and Hematuria Likely transient post-infection. Plan: * Monitor renal function * Repeat UA after infection resolves Health maintenance: DVT Prophylaxis: SCDs; hold anticoagulation until cleared by surgery GI Prophylaxis: Protonix IV daily Diet: Regular Code Status: Full ----- Plan discussed with attending physician Dr. Deny Woodard MD PGY-1 Internal Medicine Attending Provider Attestation/Addendum Patient seen and examined with resident physician Dr. Woodard. Note reviewed, agree with findings and recommendations. Patient with right perirectal abscess. On IV antibiotics. s/p I&D with Dr Fortune. will arrange [facility]
--- NOTE | 2024-12-30 14:26 | PD.SURPROG ---
Documentation for date of: 12/30/24 Subjective Subjective Narrative: Patient is seen and been examined. Her pain is improving Exam Vital Signs Temp Pulse Resp BP Pulse Ox O2 Del Method 97.9 F 69 18 107/66 95 Room Air 12/30/24 12:00 12/30/24 12:00 12/30/24 12:00 12/30/24 12:00 12/30/24 12:00 12/30/24 12:00 Constitutional Constitutional: no acute distress Routine Abdominal Exam Abdominal: Present soft and normoactive bowel sounds; Absent tenderness or distended Routine Rectal Exam Comments: Packing was removed, no bleeding. She still has significant cellulitis and minimal purulent drainage Assessment & Plan Assessment Additional comments: Postop day #1 status post incision and drainage of perineal abscess Plan Continue IV antibiotics. Wound care as directed. PROCEDURES: Procedures Incision and drainage of right perianal abscess
--- NOTE | 2024-12-30 19:27 | PC.NURSE ---
Pt complaining of abd cramping caused by gas, pt requesting anti-gas meds. Dr. Barclay was contacted to let her know abt pt's request. Per , radhika to order simethicone Q6 PRN.
[2024-12-30] MEDS: SIMETHICONE 80 MG CHEW PO (21:10)
[2024-12-31] VITALS (8 sets, daily range): BP systolic 105–118; BP diastolic 70–79; PULSE 64–79; RESP 16–99; TEMP 36.1–36.7; O2SAT 94–98
[2024-12-31] MEDS: CLINDAMYCIN 900MG IVPB 900 MG in PRE-MIXED 1 BAG 50 MG IV ×2 (05:26→22:01)
[2024-12-31] MEDS: PIPER/TAZO 3.375 GM PREMIX 3.375 G/50 ML BAG IV ×2 (05:26→22:01)
[2024-12-31 05:57] LABS: Basophils # (Auto) 0.1 Thou/mm3 (0.0-0.2); Basophils % (Auto) 1 % (0-2.5); Eosinophils # (Auto) 0.1 Thou/mm3 (0.0-0.5); Eosinophils % (Auto) 1 % (0-10); Hematocrit 29.1 % (36.0-46.0); Hemoglobin 9.4 g/dL (12.0-16.0); Immature Granulocytes Auto 0.04 Thou/mm3 (0.00-0.00); Lymphocytes # (Auto) 1.4 Thou/mm3 (1.0-4.8); Lymphocytes % (Auto) 21 % (10-50); Mean Corpuscular HGB Conc 32.3 g/dl (31.0-37.0); Mean Corpuscular Hemoglobin 26.4 pg (25.0-35.0); Mean Corpuscular Volume 82 fL (80-100); Monocytes # (Auto) 0.5 Thou/mm3 (0.0-0.8); Monocytes % (Auto) 8 % (0-12); Neutrophils # (Auto) 4.5 Thou/mm3 (1.8-7.7); Neutrophils % (Auto) 69 % (37-80); Nucleated Red Blood Cell # 0.00 Thou/mm3 (0.00-0.00); Nucleated Red Blood Cell % 0 /100 WBC (0); Platelet Count 285 Thou/mm3 (140-440); RDW Standard Deviation 39.6 fL (36.4-46.3); Red Blood Count 3.56 Miln/mm3 (4.00-5.20); White Blood Count 6.5 Thou/mm3 (3.6-11.0)
[2024-12-31 06:22] LABS: Albumin, Serum 3.5 gm/dL (3.5-5.0); Anion Gap 12 (7-16); BUN/Creatinine Ratio 10 Ratio (12-20); Blood Urea Nitrogen 9 mg/dL (9-23); Calcium 8.5 mg/dL (8.3-10.6); Calcium (Corrected) 8.9 mg/dL (8.5-10.1); Carbon Dioxide 26.5 mMol/L (20.0-31.0); Chloride 105 mMol/L (98-107); Creatinine (Component) 0.9 mg/dL (0.6-1.3); Estimated Creatinine Clearance 86.8 mL/min (>60); Glucose 94 mg/dL (74-106); Osmolality,Calculated 283 (275-295); Phosphorous 4.0 mg/dL (2.4-5.1); Potassium 3.3 mMol/L (3.4-5.1); Sodium 143 mMol/L (136-145); eGFR > 60 See Note
--- NOTE | 2024-12-31 08:24 | ESPR_ITS ---
Documentation for date of: 12/31/24 Subjective Subjective Interval history: Interval history: Chief complaint: Right buttock pain and swelling for 3 days History of present illness: 49-year-old female with no significant past medical history presented with worsening right perirectal pain, redness, and swelling over the past 3 days. Pain is moderate, constant, and aggravated by ambulation or sitting. She denies fevers, chills, nausea, vomiting, abdominal pain, or changes in bowel habits. She was evaluated by her PCP, Dr. Barclay, and received IM penicillin without improvement. CT abdomen/pelvis showed a right perianal abscess measuring 41 x 32 x 55 mm with mild rectal wall thickening, no intra-abdominal pathology. She received IV fluids, IV Zosyn, morphine, and Toradol in the ED. General Surgery was consulted (Dr. Fortune) and proceeded with incision and drainage of the right perianal abscess on 12/29/24 under general anesthesia. Post-op, the patient is alert, stable, and reports mild discomfort at the incision site. Packing remains in place. 12/30/2024: Patient seen and examined at bedside. Reports feeling better today with less pain and appears more comfortable. Denies fever, chills, or new complaints. Surgeon will evaluate today to change wound dressing and address her questions. Possible discharge tomorrow pending surgical recommendations. Discussed potential for home health services for wound dressing changes, as patient has no one available to assist at home. 12/31/2024 patient resting comfortably. The perirectal abscess was incised and packed. Spoke to Dr. Fortune-plan for discharge tomorrow on p.o. antibiotics. She needs wound care to be arranged prior. Review of Systems Review of Systems Narrative Review of Systems: CONSTITUTIONAL: Patient denies any fever, chills. HEENT: Denies any visual disturbances or hearing problems. CARDIOVASCULAR: Patient denies any chest pain, shortness of breath, swelling in the lower extremities. PULMONARY: Patient denies any shortness of breath, cough. GASTROINTESTINAL: Patient denies any abdominal pain, constipation, nausea, vomiting, diarrhea. GENITOURINARY: Patient denies any urinary symptoms of burning or frequency or hematuria, denies any form in the urine. SKIN: Perirectal abscess which was incised MUSCULOSKELETAL: Denies any muscular skeletal problems of joint pains. NEUROLOGICAL: Denies any neurological problems of strokes, seizures or confusion. Denies any memory problems. PSYCHIATRIC: Denies any depression or anxiety. LYMPHATICS : No lymphadenopathy Exam Vital Signs Temp Pulse Resp BP Pulse Ox O2 Del Method 36.2 C 64 17 118/77 95 Room Air 12/31/24 04:00 12/31/24 04:00 12/31/24 04:00 12/31/24 04:00 12/31/24 04:00 12/31/24 04:00 Narrative Exam General: Alert, oriented x3, in mild discomfort but not in acute distress Neck: Supple, no lymphadenopathy Cardiac: Regular rate and rhythm, no murmurs Lungs: Clear to auscultation bilaterally Abdomen: Soft, non-distended, non-tender, positive bowel sounds Rectal: Right perianal area with incision and packing in place, mild surrounding erythema and tenderness, no active drainage Extremities: No edema, good pulses Neuro: Grossly intact Skin: Warm, dry, with localized erythema at incision site Objective Labs 01/01/25 05:09 01/01/25 05:09 Labs: Laboratory Results - last 24 hr 12/31/24 04:58 WBC 6.5 RBC 3.56 L Hgb 9.4 L Hct 29.1 L MCV 82 MCH 26.4 MCHC 32.3 RDW Std Deviation 39.6 Plt Count 285 Neut % (Auto) 69 Lymph % (Auto) 21 Bandera % (Auto) 8 Eos % (Auto) 1 Baso % (Auto) 1 Neut # (Auto) 4.5 Lymph # (Auto) 1.4 Bandera # (Auto) 0.5 Eos # (Auto) 0.1 Baso # (Auto) 0.1 Immature Gran # (Auto) 0.04 H Absolute Nucleated RBC 0.00 Immature Gran % 1 H Nucleated RBC % 0 Sodium 143 Potassium 3.3 L Chloride 105 Carbon Dioxide 26.5 Anion Gap 12 BUN 9 Creatinine 0.9 Estim Creat Clear Calc 86.8 eGFR > 60 BUN/Creatinine Ratio 10 L Glucose 94 Calculated Osmolality 283 Calcium 8.5 Corrected Calcium 8.9 Phosphorus 4.0 Albumin 3.5 Assessment & Plan Assessment and plan (1) Abscess, perianal: Status: Acute Additional Assessment & Plan Additional Plan: 49-year-old female with no PMH admitted with right perianal abscess, now s/p I&D by surgery on 12/29/24, stable post-procedure. # Perianal Abscess (s/p I&D 12/29/24) Active infection with cellulitis, now post-drainage. Plan: * Continue IV Zosyn 3.375 g q8h * Continue IV Clindamycin 900 mg q8h for anaerobic coverage * Await wound culture results for targeted therapy * Daily wound assessment * Plan for possible discharge tomorrow after surgical clearance--on p.o. antibiotics * If discharged, arrange home health for wound dressing changes * Monitor CBC, temp, wound drainage # Hypokalemia (resolved) Potassium 3.7; likely from poor PO intake and IVF. Plan: * Replete to maintain K > 4.0 * BMP daily #Proteinuria and Hematuria Likely transient post-infection. Plan: * Monitor renal function * Repeat UA after infection resolves Health maintenance: DVT Prophylaxis: SCDs; hold anticoagulation until cleared by surgery GI Prophylaxis: Protonix IV daily Diet: Regular Code Status: Full Quality - progress note Quality Measures Quality Measures: VTE prophylaxis Reason for Continued Stay Reason for Continued Stay: further monitoring
[2024-12-31] MEDS: ACETAMINOPHEN 325 MG TABLET 650 MG PO (14:18)
--- NOTE | 2024-12-31 15:09 | PC.NURSE ---
patient refused the administration of IV antibiotic, stating she spoke with DR. Barclay and wants PO medication.
--- NOTE | 2024-12-31 15:51 | PC.NURSE ---
Patient education provided again on the importance of antibiotic administration. Patient again refused administration wanting to wait for changes to medication orders.
[2024-12-31] MEDS: ASCORBIC ACID 250 MG TABLET 500 MG PO (22:01)
[2025-01-01] VITALS: BP 110/69; PULSE 65; RESP 18; TEMP 36.3; O2SAT 99
[2025-01-01] MEDS: ACETAMINOPHEN 325 MG TABLET 650 MG PO (03:16)
[2025-01-01 04:00] VITALS: BP 112/78; PULSE 60; RESP 16; TEMP 36.2; O2SAT 96
[2025-01-01] MEDS: PIPER/TAZO 3.375 GM PREMIX 3.375 G/50 ML BAG IV (05:34)
[2025-01-01] MEDS: CLINDAMYCIN 900MG IVPB 900 MG in PRE-MIXED 1 BAG 50 MG IV (05:34)
[2025-01-01 05:43] LABS: Basophils # (Auto) 0.0 Thou/mm3 (0.0-0.2); Basophils % (Auto) 1 % (0-2.5); Eosinophils # (Auto) 0.1 Thou/mm3 (0.0-0.5); Eosinophils % (Auto) 2 % (0-10); Hematocrit 30.0 % (36.0-46.0); Hemoglobin 9.9 g/dL (12.0-16.0); Immature Granulocytes Auto 0.06 Thou/mm3 (0.00-0.00); Lymphocytes # (Auto) 1.5 Thou/mm3 (1.0-4.8); Lymphocytes % (Auto) 32 % (10-50); Mean Corpuscular HGB Conc 33.0 g/dl (31.0-37.0); Mean Corpuscular Hemoglobin 26.9 pg (25.0-35.0); Mean Corpuscular Volume 82 fL (80-100); Monocytes # (Auto) 0.5 Thou/mm3 (0.0-0.8); Monocytes % (Auto) 10 % (0-12); Neutrophils # (Auto) 2.6 Thou/mm3 (1.8-7.7); Neutrophils % (Auto) 54 % (37-80); Nucleated Red Blood Cell # 0.00 Thou/mm3 (0.00-0.00); Nucleated Red Blood Cell % 0 /100 WBC (0); Platelet Count 280 Thou/mm3 (140-440); RDW Standard Deviation 39.3 fL (36.4-46.3); Red Blood Count 3.68 Miln/mm3 (4.00-5.20); White Blood Count 4.7 Thou/mm3 (3.6-11.0)
[2025-01-01 06:07] LABS: Albumin, Serum 3.5 gm/dL (3.5-5.0); Anion Gap 11 (7-16); BUN/Creatinine Ratio 9 Ratio (12-20); Blood Urea Nitrogen 8 mg/dL (9-23); Calcium 8.3 mg/dL (8.3-10.6); Calcium (Corrected) 8.7 mg/dL (8.5-10.1); Carbon Dioxide 27.8 mMol/L (20.0-31.0); Chloride 103 mMol/L (98-107); Creatinine (Component) 0.9 mg/dL (0.6-1.3); Estimated Creatinine Clearance 86.8 mL/min (>60); Glucose 93 mg/dL (74-106); Osmolality,Calculated 281 (275-295); Phosphorous 4.1 mg/dL (2.4-5.1); Potassium 3.0 mMol/L (3.4-5.1); Sodium 142 mMol/L (136-145); eGFR > 60 See Note
[2025-01-01 08:00] VITALS: BP 118/81; PULSE 65; RESP 18; TEMP 36.2; O2SAT 97
--- NOTE | 2025-01-01 08:22 | PC.NURSE ---
COORDINATED CARE WITH DR. GONSALES.
--- NOTE | 2025-01-01 08:30 | PD.SURPROG ---
Documentation for date of: 12/31/24 Subjective Subjective Narrative: Patient is seen and examined. Her pain is improving. Exam Vital Signs Temp Pulse Resp BP Pulse Ox O2 Del Method 97.2 F 60 16 112/78 96 Room Air 01/01/25 04:00 01/01/25 04:00 01/01/25 04:00 01/01/25 04:00 01/01/25 04:00 01/01/25 04:00 Constitutional Constitutional: no acute distress Routine Rectal Exam Comments: Cellulitis improving. Still has some purulent drainage, no bleeding Assessment & Plan Assessment Additional comments: Postop day #2 status post incision and drainage of perianal abscess Plan Continue IV antibiotics. Wound care as directed. PROCEDURES: Procedures Incision and drainage of right perianal abscess
--- NOTE | 2025-01-01 08:30 | PD.SURPROG ---
Documentation for date of: 01/01/25 Subjective Subjective Narrative: Patient is seen and examined. Her pain continues to improve. She is tolerating diet well and having bowel movements Exam Vital Signs Temp Pulse Resp BP Pulse Ox O2 Del Method 97.2 F 60 16 112/78 96 Room Air 01/01/25 04:00 01/01/25 04:00 01/01/25 04:00 01/01/25 04:00 01/01/25 04:00 01/01/25 04:00 Constitutional Constitutional: no acute distress Routine Rectal Exam Comments: Significant improvement of cellulitis. No bleeding or significant drainage Assessment & Plan Assessment Additional comments: Postop day #3 status post incision and drainage of perianal abscess Plan May discharge home on oral antibiotics for 7 days. Follow-up with wound clinic for wound management PROCEDURES: Procedures Incision and drainage of right perianal abscess
[2025-01-01] MEDS: ZINC SULFATE 220 MG CAPSULE PO (08:51)
[2025-01-01] MEDS: PANTOPRAZOLE 40 MG TABLET PO (08:51)
[2025-01-01] MEDS: ASCORBIC ACID 250 MG TABLET 500 MG PO (08:51)
--- NOTE | 2025-01-01 09:42 | ESDS_ITS ---
Planned Discharge Date 01/01/25 DS: Providers Provider Date of admission: 12/28/24 20:52 Primary care physician: Zack Barclay MD Admitting Provider: Zack Barclay MD Attending Provider on Admission: Zack Barclay MD Consults: 12/28/24 20:31 Consult to General Surgery Stat Comment: Perirectal abscess Consulting Provider: Ines Fortune Attending Provider on DC: Zack Barclay MD Discharging Provider: Dave Woodard MD DS: Diagnosis Problem List Completed Was Problem List Reviewed/Reconciled?: Yes Hospital Course Hospital Course Hospital course: 49-year-old female admitted for right perianal abscess measuring 41 ? 32 ? [address] She underwent incision and drainage by Dr. Fortune on 12/29/24. Postoperatively, the patient did well, reporting reduced pain and improved comfort. She remained afebrile and hemodynamically stable throughout admission. The wound site was packed, clean, with no oozing or drainage noted prior to discharge. Potassium was mildly low this morning (3.0) and was repleted with 40 mEq PO potassium chloride. Patient tolerated regular diet, had normal bowel movements, and ambulated without difficulty. Surgery cleared the patient for discharge with recommendation for wound care follow-up, zinc and vitamin C supplementation to aid healing, and continuation of antibiotics for 1 week. Diagnosis during admission: # Perianal Abscess (s/p I&D) # Hypokalemia (resolved) # Post-operative care following I&D Discharge Medications -Ibuprofen 600 mg PO PRN -Bactrim DS 800/160 mg PO BID x 7 days -Zinc supplement daily -Vitamin C supplement daily Discharge Instructions: -Monitor wound for redness, swelling, pus, or fever >100.4?F ? return to ED if present -Keep dressing clean and dry; allow home health to change as scheduled -Take all medications as prescribed -Maintain good hydration and balanced diet -Take zinc and vitamin C daily to promote healing -Avoid heavy lifting or straining until cleared by surgery -Follow up with wound care and PCP as scheduled -Call or return to ED for increasing pain, drainage, or fever ----- Plan discussed with attending physician Dr. Deny Woodard MD PGY-1 Internal Medicine Time Spent with Patient Time attestation: Total time spent providing and/or coordinating discharge services: Time spent: Greater than 30 minutes Home Health Home Health Referral Orders: 12/31/24 08:04 Home Health Referral Routine Reason For Exam: rt perirectal abscess Home-Bound The patient must either because of illness or injury, need the aid of supportive devices such as crutches, canes, wheelchairs, and walkers; the use of special transportation; or the assistance of another person in order to leave their place of residence; OR have a condition such that leaving his or her home is medically contraindicated. In addition, the patient also meets the following criteria: patient is normally unable to leave the home and leaving home requires considerable taxing effort. Addendum to Home Health Certification Practitioner's Certification: I certify that the patient has been under my care in the hospital and the care of attending physician (see below). We had a [id number] encounter on (see date below). My clinical findings indicate that the patient is home bound per the above criteria and the Home Health Services noted in these orders are medically necessary. The primary reason for the [id number] encounter is related to the fact that the patient requires home health services. Date Certifying Wvao-[id number] Physician Encounter: 12/31/24 Physician's Name who will Assume Oversight for Services: Zack Barclay Physician's Phone No.who will Assume Oversight for Service: MUNICIPAL ENGINEER - Community Resources: No PT to Evaluate: No PT to evaluate and provide a treatmnet plan to increase patient's mobility and strength. Wound Care: Yes Home Health RN - Wound Care Order: wet to dry dressing daily IV Therapy: No Discontinue PICC Line Once Treatment Complete: No RN Safety Evaluation: Yes RN to evaluate and create a plan of care that will produce positive outcomes. Palliative Treatment: No Palliative treatment and evaluate the need for hospice. Home Health Aide - Personal Care: No Home Health Aide to assist with any ADL's. Exam Vital Signs Temp Pulse Resp BP Pulse Ox O2 Del Method 97.2 F 60 16 112/78 96 Room Air 01/01/25 04:00 01/01/25 04:00 01/01/25 04:00 01/01/25 04:00 01/01/25 04:00 01/01/25 04:00 Narrative Exam General: Alert, comfortable, in no distress Heart: Regular rate and rhythm Lungs: Clear to auscultation bilaterally Abdomen: Soft, non-tender Rectal/Wound: Site packed, no oozing, no active drainage, mild tenderness Neuro: Grossly intact Discharge Plan Plan Patient Disposition: Home w/HOME HEALTH Care Plan Goals: -Monitor wound for redness, swelling, pus, or fever >100.4?F ? return to ED if present -Keep dressing clean and dry; allow home health to change as scheduled -Take all medications as prescribed -Maintain good hydration and balanced diet -Take zinc and vitamin C daily to promote healing -Avoid heavy lifting or straining until cleared by surgery -Follow up with wound care and PCP as scheduled -Call or return to ED for increasing pain, drainage, or fever -Follow up with [facility]ound Healing Department, call [phone] for appointment[address] [place] [address]. -Right elmira rectal abscess incision: May shower and change dressing after showering. Wash hands with soap and water. Remove old dressing including packing strip. Irrigate well with wound cleanser spray and pat dry with gauze. Wash hands again or change your gloves. Pack wound with single strip of 1/2 inch strip packing, inserting until the deepest portion of your wound continuing until the wound is fully packed. Cover with dry gauze and secure with tape. Change twice a day and as needed after urinating or soiling with feces. If active bleeding occurs, apply tight dressing and return to MD or ER. ? Notify primary doctor or return to Emergency Room if any of the following: ? Fever above 100.6? F. ? Increased pain ? Increase swelling ? Red streaks around your wound ? Drainage becomes foul smelling or changes color ? The wound is larger or deeper ? The wound looks dried out or dark ? Bleeding that does not stop with holding pressure Prescriptions/Referrals Prescriptions/Med Rec: New sulfamethoxazole-trimethoprim [Bactrim DS] 800-160 mg tablet 1 tab PO BID 7 Days Qty: 14 0RF ibuprofen 600 mg tablet 600 mg PO BID MDD 1200 mg PRN (Reason: pain) 7 Days Qty: 14 0RF Referrals: Zack Barclay MD [Primary Care Provider, Nephrology] Patient/Caregiver Discharge Instructions Discharge Activity: activity as tolerated Education Materials: Nutrition for Wound Healing, Incision Care Dc, Changing Dressing Dc, Discharge Instructions Wound ..., Preventing Surgical Site Infections, ED ABSCESS [place]-Anal Abx only, ED ABSCESS [place]-Anal IandD Print Language: Czech Stand Alone Forms: [employer] Award Info., Patient Portal Info Letter Discharge Order Discharge Orders: Discharge (Routine); Ordered 01/01/25 Ordered By: Dave Woodard Quality Discharge Quality Measures VTE prophylaxis Attestestation MD Attestation Patient seen and examined with resident physician Dr. Woodard. Note reviewed, agree with findings and recommendations. Patient will be discharged on p.o. Bactrim, p.o. ibuprofen. Will follow-up with wound care center and home health-wound care.
--- NOTE | 2025-01-01 10:49 | PC.NURSE ---
PRESENT WAS EDUCATED ON WOUND CARE INSTRUCTIONS, S/S OF INFECTION, INFECTION CONTROL, HOME HEALTH, AND REFERRAL TO WOUND CARE CLINIC. ALL QUESTIONS ANSWER. PATIENT WILL BE DISCHARGE WITH 1 WEEK OF SUPPLIES.
--- NOTE | 2025-01-01 11:41 | PC.CM ---
Addendum entered by Karli Quintana RN 01/01/25 13:31: I sent discharge summary on [facility]. Original Note: Patient has been accepted by [facility]. Start of care date set for 01/02. I will send the discharge summary once it is completed.
[2025-01-01 12:00] VITALS: BP 123/86; PULSE 66; RESP 17; TEMP 36.1; O2SAT 97
[2025-01-01 13:16] VITALS: PULSE 63; RESP 18; RESP 99
--- NOTE | 2025-01-01 13:26 | PC.NURSE ---
DR. GONSALES MADE AWARE PT IS DC ON IBU AND BACTRIM. PROCEED WITH DISCHARGE.
== END 2025-01-01 13:39 | disposition home health service (06) | DRG 349 ==
LOC: SERX 18:38 → SERHOLD 12-29 06:07 → S3SX 12-29 06:07
PROVIDERS: Anesthesiology; Nurse Practitioner Family; Surgery; Admitting Provider Internal Medicine; Emergency Provider Emergency Medicine; PCP Internal Medicine; Visit Provider Internal Medicine
PROC: 0D9Q0ZZ Drainage of Anus, Open Approach (ICD-10-PCS; principal; 2024-12-29 11:30)
DX: K61.2 Anorectal abscess (principal); E87.6 Hypokalemia
CPT/HCPCS: 36415; 74177; 80048; 80053; 80069; 81001; 83605; 84145; 84703; 85025; 87040; 87070; 87075; 87086; 87186; 87205; 90715; 94664; 96361; 96365; 96375; 99284; A4217; A4649; J0736; J1100; J1885; J2270; J2543; J2704; J2765; J3010; J3480; J3490; J7120; Q0162; Q9967; A9270

== ENCOUNTER → 2025-01-04 | Outpatient (CLI) | payer BC, SELFPAY | END | disposition home or self-care (01) | PROVIDERS: PCP Internal Medicine; Referring Provider Internal Medicine; Visit Provider Student in an Organized Health Care Education/Training Program | DX: K61.0 Anal abscess (principal); S31.839A Unspecified open wound of anus, initial encounter; X58.XXXA Exposure to other specified factors, initial encounter | CPT/HCPCS: 99213; A9270; G0463 ==

== ENCOUNTER → 2025-01-11 | Outpatient (CLI) | payer BC, SELFPAY | END | disposition home or self-care (01) | LOC: SWHD 13:04 | PROVIDERS: PCP Internal Medicine; Referring Provider Internal Medicine; Visit Provider Student in an Organized Health Care Education/Training Program | DX: S31.839A Unspecified open wound of anus, initial encounter (principal); X58.XXXA Exposure to other specified factors, initial encounter; K61.0 Anal abscess | CPT/HCPCS: 99213; A9270; G0463 ==

== ENCOUNTER → 2025-01-11 | Outpatient (CLI) | payer BC, SELFPAY | END | disposition home or self-care (01) | LOC: SLDO 15:06 | PROVIDERS: Referring Provider Student in an Organized Health Care Education/Training Program; Visit Provider Student in an Organized Health Care Education/Training Program | DX: L02.31 Cutaneous abscess of buttock (principal) | CPT/HCPCS: 87070; 87075; 87077; 87186; 87205 ==

== ENCOUNTER → 2025-01-18 | Outpatient (CLI) | payer BC, SELFPAY | END | disposition home or self-care (01) | LOC: SWHD 12:53 | PROVIDERS: PCP Internal Medicine; Referring Provider Internal Medicine; Visit Provider Student in an Organized Health Care Education/Training Program | DX: S31.839A Unspecified open wound of anus, initial encounter (principal); X58.XXXA Exposure to other specified factors, initial encounter; K61.0 Anal abscess | CPT/HCPCS: 99213; A9270; G0463 ==

== ENCOUNTER → 2025-01-25 | Outpatient (CLI) | payer BC, SELFPAY | END | disposition home or self-care (01) | LOC: SWHD 12:58 | PROVIDERS: PCP Internal Medicine; Referring Provider Internal Medicine; Visit Provider Student in an Organized Health Care Education/Training Program | DX: S31.839A Unspecified open wound of anus, initial encounter (principal); X58.XXXA Exposure to other specified factors, initial encounter; K61.0 Anal abscess | CPT/HCPCS: 99213; A9270; G0463 ==

== ENCOUNTER → 2025-02-01 | Outpatient (CLI) | payer BC, SELFPAY | END | disposition home or self-care (01) | LOC: SWHD 12:59 | PROVIDERS: PCP Internal Medicine; Referring Provider Internal Medicine; Visit Provider Student in an Organized Health Care Education/Training Program | DX: S31.839A Unspecified open wound of anus, initial encounter (principal); X58.XXXA Exposure to other specified factors, initial encounter; K61.0 Anal abscess | CPT/HCPCS: 99213; A9270; G0463 ==

== ENCOUNTER → 2025-02-05 | Outpatient (CLI) | payer BC, SELFPAY | END | disposition home or self-care (01) | LOC: SLDO 14:05 | PROVIDERS: Referring Provider Student in an Organized Health Care Education/Training Program; Visit Provider Student in an Organized Health Care Education/Training Program | DX: L02.31 Cutaneous abscess of buttock (principal) | CPT/HCPCS: 87070; 87075; 87077; 87186; 87205 ==

== ENCOUNTER → 2025-02-08 | Outpatient (CLI) | payer BC, SELFPAY | END | disposition home or self-care (01) | LOC: SWHD 13:04 | PROVIDERS: PCP Internal Medicine; Referring Provider Internal Medicine; Visit Provider Student in an Organized Health Care Education/Training Program | DX: S31.839A Unspecified open wound of anus, initial encounter (principal); X58.XXXA Exposure to other specified factors, initial encounter; K61.0 Anal abscess | CPT/HCPCS: 99213; G0463 ==

== ENCOUNTER → 2025-02-22 | Outpatient (CLI) | payer BC, SELFPAY | END | disposition home or self-care (01) | PROVIDERS: PCP Internal Medicine; Referring Provider Internal Medicine; Visit Provider Student in an Organized Health Care Education/Training Program | DX: S31.839A Unspecified open wound of anus, initial encounter (principal); X58.XXXA Exposure to other specified factors, initial encounter; K61.0 Anal abscess | CPT/HCPCS: 99212; G0463 ==

== ENCOUNTER → 2025-02-22 | Outpatient (CLI) | payer OTHER, BC, SELFPAY ==
[2025-02-22 09:53] LABS: Basophils # (Auto) 0.1 Thou/mm3 (0.0-0.2); Basophils % (Auto) 2 % (0-2.5); Eosinophils # (Auto) 0.1 Thou/mm3 (0.0-0.5); Eosinophils % (Auto) 4 % (0-10); Hematocrit 37.8 % (36.0-46.0); Hemoglobin 11.9 g/dL (12.0-16.0); Immature Granulocytes Auto 0.01 Thou/mm3 (0.00-0.00); Lymphocytes # (Auto) 1.1 Thou/mm3 (1.0-4.8); Lymphocytes % (Auto) 32 % (10-50); Mean Corpuscular HGB Conc 31.5 g/dl (31.0-37.0); Mean Corpuscular Hemoglobin 26.8 pg (25.0-35.0); Mean Corpuscular Volume 85 fL (80-100); Monocytes # (Auto) 0.3 Thou/mm3 (0.0-0.8); Monocytes % (Auto) 9 % (0-12); Neutrophils # (Auto) 1.9 Thou/mm3 (1.8-7.7); Neutrophils % (Auto) 53 % (37-80); Nucleated Red Blood Cell # 0.00 Thou/mm3 (0.00-0.00); Nucleated Red Blood Cell % 0 /100 WBC (0); Platelet Count 210 Thou/mm3 (140-440); RDW Standard Deviation 43.9 fL (36.4-46.3); Red Blood Count 4.44 Miln/mm3 (4.00-5.20); White Blood Count 3.5 Thou/mm3 (3.6-11.0)
[2025-02-22 10:14] LABS: Alanine Aminotransferase 12 U/L (10-49); Albumin, Serum 5.0 gm/dL (3.5-5.0); Albumin/Globulin Ratio 1.6 (1.2-2.2); Alkaline Phosphatase 71 U/L (46-116); Anion Gap 9 (7-16); Aspartate Amino Transferase 19 U/L (0-34); BUN/Creatinine Ratio 17 Ratio (12-20); Bilirubin,Total 1.4 mg/dL (0.3-1.2); Blood Urea Nitrogen 17 mg/dL (9-23); Calcium 9.7 mg/dL (8.3-10.6); Calcium (Corrected) 9.7 mg/dL (8.5-10.1); Carbon Dioxide 25.1 mMol/L (20.0-31.0); Cardiac Risk Estimate 3.2 RATIO (3.7-5.6); Chloride 108 mMol/L (98-107); Cholesterol 185 mg/dL (132-200); Creatinine (Component) 1.0 mg/dL (0.6-1.3); Globulin 3.1 gm/dL (2.3-3.5); Glucose 98 mg/dL (74-106); HDL Cholesterol 57 mg/dL (40-60); LDL Cholesterol,Calculated 117 mg/dL (0-130); Osmolality,Calculated 284 (275-295); Potassium 4.2 mMol/L (3.4-5.1); Sodium 142 mMol/L (136-145); Thyroid Stimulating Hormone 2.57 uIU/mL (0.55-4.78); Total Protein 8.1 gm/dL (5.7-8.2); Triglycerides 57 mg/dL (30-150); Uric Acid 8.6 mg/dL (3.1-7.8); eGFR > 60 See Note
[2025-02-22 10:18] LABS: Ferritin 10 ng/mL (7.3-270.7); Glucose Estimated Average 91 mg/dL (80-131); Hemoglobin A1C 4.8 % Hgb (4.8-6.0)
[2025-02-22 10:22] LABS: Follicle Stimulating Hormone 54.70 mIU/mL (See Note); Vitamin B12 533 pg/mL (211-911); Vitamin D 25 Hydroxy Total 61.4 ng/mL (7.3-40.2)
[2025-02-22 10:28] LABS: Collection Type, Urine Clean Catch
[2025-02-22 11:17] LABS: Bacteria,Urine Rare; Bilirubin,Urine Negative (Negative); Blood,Urine 1+ (Negative); Color,Urine Yellow (Lt Yel-Yel); Glucose, Urine Negative (Negative); Hyaline Casts,Urine < 1 /hpf (0-1); Ketones,Urine Negative (Negative); Leukocyte Esterase,Urine Positive (Negative); Nitrite,Urine Negative (Negative); PH,Urine 5.5 (5.0-7.0); Protein,Urine Trace (Neg - Trace); RBC,Urine 5 /hpf (0-3); Specific Gravity,Urine 1.031 (1.001-1.035); Squamous Epithelial Cell,Urine 11 /hpf (0-5); Urobilinogen,Urine Negative mg/dL (0.0-1.0); WBC,Urine 10 /hpf (0-5)
[2025-02-22 11:18] LABS: Clarity,Urine Hazy (Clear/Hazy)
[2025-03-01 06:32] LABS: Estrogen, Total, Serum* 62 pg/mL; Luteinizing Hormone* 39.7 mIU/mL; Progesterone,LC/MS* <0.1 ng/mL
== END | disposition home or self-care (01) ==
LOC: COPL 08:46
PROVIDERS: PCP Internal Medicine; Referring Provider Internal Medicine; Visit Provider Internal Medicine
DX: Z00.00 Encounter for general adult medical examination without abnormal findings (principal); L02.31 Cutaneous abscess of buttock
CPT/HCPCS: 36415; 80053; 80061; 81001; 82306; 82607; 82672; 82728; 83001; 83002; 83036; 84144; 84443; 84550; 85025